=== PATIENT | female | born 1965 | race Caucasian/White ===

== ENCOUNTER → 2022-08-08 13:30 | Outpatient (CLI) | payer BC, SELFPAY ==
--- NOTE | ~2022-08-08 | XR_ITS ---
EXAM: XR shoulder LT min 2V DATE: 08/08/2022 13:48 HISTORY: Lt shoulder pain for 1 year injury 1 year ago . COMPARISON: None available. FINDINGS: Decreased mineralization. No acute fracture or dislocation. No lytic or blastic lesion. Mi ld degenerative change at the AC joint. Mild humeral head osteophytosis. Acromial enthesopathy. No er osion or periosteal change. Soft tissues within normal limits. IMPRESSION: Mild polyarticular osteoarthritis. Reviewed, dictated and finalized at location K.
== END ==
PROVIDERS: PCP Internal Medicine; Visit Provider Chiropractor
DX: M19.012 Primary osteoarthritis, left shoulder (principal)
CPT/HCPCS: 73030